=== PATIENT | male | born 1985 | race African-American/Black ===

== ENCOUNTER 2020-08-22 11:05 | Emergency (ER) | payer BC, OTHER ==
--- NOTE | 2020-08-22 14:34 | ER ---
Nurse's Notes [facility] Name: Baron Yanes Age: 34 yrs Sex: Male : 1985 Arrival Date: 08/22/2020 Time: 11:08 Bed Waiting Private MD: Diagnosis: Presentation: 08/22 11:38 Chief complaint: Patient states: chest palpitations that began 2-3 days ago. Pt reports aa5 he just started taking unknown antihypertensive on Tuesday. Coronavirus screen: At this time, the client does not indicate any symptoms associated with coronavirus-19. Ebola Screen: No symptoms or risks identified at this time. Initial Sepsis Screen: Does the patient meet any 2 criteria? No. Patient's initial sepsis screen is negative. Does the patient have a suspected source of infection? No. Patient's initial sepsis screen is negative. Risk Assessment: Do you want to hurt yourself or someone else? Patient reports no desire to harm self or others. Onset of symptoms was August 2020. 11:38 Method Of Arrival: Ambulatory aa5 11:38 Acuity: TANYA 3 aa5 Historical: - Allergies: 11:39 No Known Allergies; aa5 - PMHx: 11:39 Hypertension; aa5 - PSHx: 11:39 None; aa5 - Immunization history:: Adult Immunizations unknown. - Social history:: Smoking status: Patient reports the use of cigarette tobacco products, smokes one-half pack cigarettes per day. Vital Signs: 11:39 BP 162 / 105; Pulse 97; Resp 20 S; Temp 98.1(O); Pulse Ox 98% on R/A; Weight 149.69 kg aa5 (R); Height 5 ft. 11 in. (180.34 cm) (R); Pain 0/10; 11:39 Body Mass Index 46.03 (149.69 kg, 180.34 cm) aa5 ED Course: 11:08 Patient arrived in ED. ds1 11:38 Arm band placed on. EKG completed in triage. Results shown to MD. aa5 11:39 Triage completed. aa5 Administered Medications: No medications were administered Outcome: 14:32 Eloped from waiting room. ss 14:34 Patient left the ED. ss Signatures: Elisabeth Hurley ds1 Dorie Esquivel RN RN aa5 Smirch, Rena, RN RN ss
[2020-08-22 14:39] VITALS: BP 162/105; TEMP 98.1; O2SAT 98
--- NOTE | 2020-08-23 08:31 | EKG ---
Test Date: 2020-08-22 Test Time: 11:34:35 Financial Services Education Consultant: BARON MEASUREMENT RESULTS: Intervals: Rate: 87 IL: 174 QRSD: 92 QT: 352 QTc: 423 [place]: P: 69 IL: 174 QRS: 69 T: 35 INTERPRETIVE STATEMENTS: Normal sinus rhythm Nonspecific T wave abnormality Abnormal ECG No previous ECG available for comparison Electronically Signed On 08-23-20 08:29:11 TRACER LATHE SET UP OPERATOR by Luis Enrique Beyer
== END 2020-08-22 14:34 | disposition left against medical advice (07) ==
LOC: ER 11:05
DX: R00.2 Palpitations (principal); Z53.21 Procedure and treatment not carried out due to patient leaving prior to being seen by health care provider; I10 Essential (primary) hypertension; F17.210 Nicotine dependence, cigarettes, uncomplicated
CPT/HCPCS: 93005; 99281

== ENCOUNTER 2021-10-04 08:36 | Emergency (ER) | payer BC ==
[2021-10-04] MEDS ORDERED: HYDROCODONE/APAP 10/325 TAB ONE (08:52)
[2021-10-04] MEDS ORDERED: KETOROLAC 30 MG/ML INJ ONE (08:52)
--- NOTE | 2021-10-04 10:00 | RAD REPORT ---
EXAM DESCRIPTION: RAD - Knee Right 3 View - 10/04/2021 9:06 am CLINICAL HISTORY: PAIN COMPARISON: None available FINDINGS: No acute fracture changes are seen. No dislocation or periosteal reaction. No bone avulsio n present.A large joint effusion is present. No fat fluid level identifiable within the fluid. No elie nt space narrowing. No foreign body or other soft tissue abnormality. IMPRESSION: Large joint effusion with no acute bone finding. Clinical concerns for internal derangement or occult bony injury could be further assessed with MR im aging.
--- NOTE | 2021-10-04 10:08 | ER ---
Nurse's Notes [facility] Name: Baron Yanes Age: 35 yrs Sex: Male : 1985 Arrival Date: 10/04/2021 Time: 08:36 Bed 14 Private MD: Diagnosis: Sprain of other specified parts of right knee Presentation: 10/04 08:38 Chief complaint: Patient states: Right knee pain and swelling that started yesterday. ww He was outside doing yard work and heard a pop and this morning he is unable to bear any weight on the right leg. Coronavirus screen: Vaccine status: Patient reports receiving the 2nd dose of the covid vaccine. Client denies travel out of the [place] in the last 14 days. Ebola Screen: Patient denies travel to an Ebola-affected area in the 21 days before illness onset. Initial Sepsis Screen: Does the patient meet any 2 criteria? No. Patient's initial sepsis screen is negative. Does the patient have a suspected source of infection? No. Patient's initial sepsis screen is negative. Risk Assessment: Do you want to hurt yourself or someone else? Patient reports no desire to harm self or others. Onset of symptoms was October 03, 2021. 08:38 Method Of Arrival: EMS: [facility] 08:38 Acuity: TANYA 4 ww Triage Assessment: 08:39 General: Appears in no apparent distress. uncomfortable, Behavior is cooperative. Pain: ww Complains of pain in lateral aspect of right knee, medial aspect of right knee and right knee. Neuro: Level of Consciousness is awake, alert, obeys commands, Oriented to person, place, time, situation. Respiratory: Airway is patent Respiratory effort is even, unlabored, Respiratory pattern is regular, symmetrical. Historical: - Allergies: 08:39 No Known Allergies; ww - Home Meds: 08:39 Bystolic 10 mg oral tab 1 tab once daily [Active]; ww - PMHx: 08:39 Hypertension; ww - Immunization history:: Adult Immunizations up to date. - Social history:: Smoking status: Patient reports the use of cigarette tobacco products, smokes one-half pack cigarettes per day. Screenin:40 Abuse screen: Denies threats or abuse. Denies injuries from another. Nutritional ww screening: No deficits noted. Tuberculosis screening: No symptoms or risk factors identified. 08:54 Fall Risk None identified. ph Assessment: 08:53 General: Appears in no apparent distress. well groomed, Behavior is calm, cooperative, ph appropriate for age. Pain: Complains of pain in right knee. Neuro: Level of Consciousness is awake, alert, obeys commands, Oriented to person, place, time, situation. Cardiovascular: Capillary refill < 3 seconds in bilateral fingers Patient's skin is warm and dry. Respiratory: Airway is patent Respiratory effort is even, unlabored. Derm: Skin is intact, is healthy with good turgor, Skin is pink, warm \T\ dry. Musculoskeletal: Circulation, motion, and sensation intact. Range of motion: limited in right knee Swelling present in right knee. 10:07 Reassessment: Patient appears in no apparent distress at this time. Patient and/or ph family updated on plan of care and expected duration. Pain level reassessed. Patient is alert, oriented x 3, equal unlabored respirations, skin warm/dry/pink. Vital Signs: 08:38 Pulse 85; Resp 16; Temp 97.9; Pulse Ox 98% on R/A; Weight 149.69 kg; Height 5 ft. 11 ww in. (180.34 cm); Pain 9/10; 08:43 BP 154 / 102; ph 10:52 BP 178 / 101; Pulse 81; Resp 18; Temp 97.6; Pulse Ox 99% on R/A; ph 08:38 Body Mass Index 46.03 (149.69 kg, 180.34 cm) ww 10:52 pt did not take morning BP meds ph ED Course: 08:36 Patient arrived in ED. ds1 08:37 Kadeem Santa NP is PHCP. pm1 08:37 Meng Hurtado MD is Attending Physician. pm1 08:39 Triage completed. ww 08:39 Arm band placed on. ww 08:42 Anna Rosales, CLAY is Primary Nurse. ph 08:54 Patient has correct armband on for positive identification. Bed in low position. Call ph light in reach. Side rails up X 1. Pulse ox on. NIBP on. Door closed. Noise minimized. Warm blanket given. Ice pack to injury. 09:07 Knee Right 3 View XRAY In Process Unspecified. EDMS 10:52 No provider procedures requiring assistance completed. Patient did not have IV access ph during this emergency room visit. Crutch training done. Knee immobilizer applied on right knee. Administered Medications: 08:53 Drug: [place] (HYDROcodone-acetaminophen) 10 mg-325 mg 1 tabs Route: PO; ph 10:11 Follow up: Response: No adverse reaction ph 08:53 Drug: Ketorolac 60 mg Route: IM; Site: right deltoid; ph 10:11 Follow up: Response: No adverse reaction ph 10:51 Not Given (Other Intervention Used; out of stock in [facility]): Lidoderm Patch 5 % (700 ph mg/patch) 1 patches Topical once; leave on for 12 hours; cover most painful area; may cut into smaller pieces Outcome: 10:07 Discharge ordered by . pm1 10:53 Discharged to home via wheelchair, with crutches, with significant other. ph 10:53 Condition: good 10:53 Discharge instructions given to patient, significant other, Instructed on discharge instructions, follow up and referral plans. medication usage, Demonstrated understanding of instructions, follow-up care, medications, Prescriptions given X 2. 10:54 Patient left the ED. ph Signatures: Dispatcher [employer] [facility] Elisabeth Hurley ds1 Anna Rosales, CLAY RN Kadeem Lacy NP LETTERPRESS SETTER pm1 Namita Dave RN RN gilma
--- NOTE | 2021-10-04 10:09 | EDPHYS ---
Physician Documentation [facility] Name: Baron Yanes Age: 35 yrs Sex: Male : 1985 Arrival Date: 10/04/2021 Time: 08:36 Bed 14 Private MD: ED Physician Meng Hurtado HPI: 10/04 08:45 This 35 yrs old Black Male presents to ER via EMS with complaints of Knee Pain. pm1 08:45 The patient presents with pain, that is acute. The complaints affect the right knee. 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 Patient got down on his knees or the 10th window that he was painting and then when he got up he felt a pop to his right knee. He was able to ambulate and move without much difficulty and until last night he started having discomfort right knee, then woke up this morning with increased pain and swelling. Onset: The symptoms/episode began/occurred yesterday. Modifying factors: The symptoms are alleviated by remaining still, the symptoms are aggravated by movement, weight bearing, bending knee. Associated signs and symptoms: Pertinent positives: swelling, Pertinent negatives numbness, tingling. Treatment prior to arrival includes: no previous treatment. Severity of symptoms: in the emergency department the symptoms are actually worse. The patient has not experienced similar symptoms in the past. The patient has not recently seen a physician. Historical: - Allergies: 08:39 No Known Allergies; ww - Home Meds: 08:39 Bystolic 10 mg oral tab 1 tab once daily [Active]; ww - PMHx: 08:39 Hypertension; ww - Immunization history:: Adult Immunizations up to date. - Social history:: Smoking status: Patient reports the use of cigarette tobacco products, smokes one-half pack cigarettes per day. ROS: 08:45 Constitutional: Negative for fever, chills, and weight loss, Cardiovascular: Negative pm1 for chest pain, palpitations, and edema, Respiratory: Negative for shortness of breath, cough, wheezing, and pleuritic chest pain. 08:45 Skin: Negative for injury, rash, and discoloration, Neuro: Negative for headache, weakness, numbness, tingling, and seizure. 08:45 MS/extremity: Positive for swelling, tenderness, of the right knee, Negative for decreased range of motion, deformity. 08:45 All other systems are negative. Exam: 08:45 Constitutional: This is a well developed, well nourished patient who is awake, alert, pm1 and in no acute distress. Head/Face: Normocephalic, atraumatic. 08:45 Skin: Warm, dry with normal turgor. Normal color with no rashes, no lesions, and no evidence of cellulitis. 08:45 Cardiovascular: Exam negative for acute changes, Rate: normal, Rhythm: regular, Pulses: no pulse deficits are appreciated. 08:45 Respiratory: Exam negative for acute changes, respiratory distress, shortness of breath. 08:45 Musculoskeletal/extremity: Extremities: grossly normal except: noted in the right knee: swelling, tenderness, Pain present with Valgus stress test and rotation medially and flexion. Negative drawer, varus, and rotation laterally, There is no evidence of deformity, Circulation is intact in all extremities. the right leg Sensation intact. 08:45 Neuro: Exam negative for acute changes, Orientation: is normal, Mentation: is normal, Motor: is normal, moves all fours. Vital Signs: 08:38 Pulse 85; Resp 16; Temp 97.9; Pulse Ox 98% on R/A; Weight 149.69 kg; Height 5 ft. 11 ww in. (180.34 cm); Pain 9/10; 08:43 BP 154 / 102; ph 10:52 BP 178 / 101; Pulse 81; Resp 18; Temp 97.6; Pulse Ox 99% on R/A; ph 08:38 Body Mass Index 46.03 (149.69 kg, 180.34 cm) ww 10:52 pt did not take morning BP meds ph MDM: 08:37 Patient medically screened. pm1 10:06 Data reviewed: vital signs. Data interpreted: Pulse oximetry: on room air is 98 %. pm1 Interpretation: normal. Counseling: I had a detailed discussion with the patient and/or guardian regarding: the historical points, exam findings, and any diagnostic results supporting the discharge/admit diagnosis, radiology results, the need for outpatient follow up, a orthopedic surgeon, to return to the emergency department if symptoms worsen or persist or if there are any questions or concerns that arise at home, Need for MRI for further evaluation. Patient given copy of x-ray report. 10/04 08:45 Order name: Knee Right 3 View XRAY; Complete Time: 10:06 pm1 10/04 08:45 Order name: Knee Immobilizer; Complete Time: 10:52 pm1 10/04 08:45 Order name: Crutches; Complete Time: 10:52 pm1 Administered Medications: 08:53 Drug: [place] (HYDROcodone-acetaminophen) 10 mg-325 mg 1 tabs Route: PO; ph 10:11 Follow up: Response: No adverse reaction ph 08:53 Drug: Ketorolac 60 mg Route: IM; Site: right deltoid; ph 10:11 Follow up: Response: No adverse reaction ph 10:51 Not Given (Other Intervention Used; out of stock in [facility]): Lidoderm Patch 5 % (700 ph mg/patch) 1 patches Topical once; leave on for 12 hours; cover most painful area; may cut into smaller pieces Disposition Summary: 10/04/21 10:07 Discharge Ordered Location: Home pm1 Problem: new pm1 Symptoms: have improved pm1 Condition: Stable pm1 Diagnosis - Sprain of other specified parts of right knee pm1 Followup: pm1 - With: Emergency Department - When: As needed - Reason: Worsening of condition Followup: pm1 - With: Private Physician - When: 2 - 3 days - Reason: Recheck today's complaints, Continuance of care, Re-evaluation by your physician Discharge Instructions: - Discharge Summary Sheet pm1 - Cast or Splint Care, Adult pm1 - Crutch Use, Adult pm1 - Acute Knee Pain, Adult pm1 Forms: - Medication Reconciliation Form pm1 - Thank You Letter pm1 - Antibiotic Education pm1 - Prescription Opioid Use pm1 - Work release form Prescriptions: - Tylenol-Codeine #3 300 mg-30 mg Oral - take 2 tablet by ORAL route every 6 hours As needed; 20 tablet; Refills: 0, pm1 Product Selection Permitted - Diclofenac Sodium 75 mg Oral tablet,delayed release (DR/EC) - take 1 tablet by ORAL route 2 times per day As needed; 30 tablet; Refills: 0, pm1 Product Selection Permitted Signatures: Dispatcher [employer] Anna Avilez RN RN ph Marinas, Patrick, REY NUTRITION SERVICES ASSISTANT pm1 Namita Dave RN RN
[2021-10-04 11:02] VITALS: BP 178/101; TEMP 97.6; O2SAT 99
== END 2021-10-04 10:54 | disposition home or self-care (01) ==
LOC: ER 08:36
DX: S83.8X1A Sprain of other specified parts of right knee, initial encounter (principal); I10 Essential (primary) hypertension; F17.210 Nicotine dependence, cigarettes, uncomplicated
CPT/HCPCS: 96372; 99284

== ENCOUNTER 2024-03-19 14:14 | Observation (INO) | payer BC ==
[2024-03-19] MEDS ORDERED: NA CHLORIDE 0.9% 1,000 ML ONE (14:38)
[2024-03-19 14:53] LABS: Absolute Basophils 0.1 K/uL (0-0.5); Absolute Eosinophils 0.3 K/uL (0-0.5); Absolute Lymphocytes (CBC) 1.6 K/uL (0.7-4.9); Absolute Monocytes 0.9 K/uL (0.1-1.3); Basophils % 0.6 % (0-1.3); Eosinophils % 2.3 % (0-4.4); Hematocrit 44.4 % (39.6-49.0); Hemoglobin 14.5 g/dL (13.6-17.9); Lymphocytes % 13.4 % (15.3-44.8); MCH 29.6 pg (27.0-35.0); MCHC 32.7 g/dL (32.0-36.0); MCV 90.3 fL (80-100); MPV 11.4 fL (7.6-11.3); Monocytes % 7.7 % (3.3-12.3); Platelets 186 thou/uL (152-406); RBC Red Blood Cell Count 4.92 M/uL (4.33-5.43); Red Cell Distribution Width 14.8 % (12.1-15.2)
[2024-03-19 14:57] LABS: PT Prothrombin Time 11.5 SECONDS (9.4-12.5); Protime INR 1.03
[2024-03-19 14:59] LABS: Specific Gravity > 1.030 (1.005-1.030); Sqamous Epithelial None Seen /HPF (None Seen); Urine Bacteria <20 /HPF (<20); Urine Bilirubin NEGATIVE (Negative); Urine Blood Negative (Negative); Urine Clarity Clear (Clear); Urine Color Light-Yellow (Yellow); Urine Culture Reflex Order NOT NEEDED; Urine Glucose 4+ (Over) (Negative); Urine Ketones 1+ (Negative); Urine Microscopic Reflex YN ORDER UMIC; Urine Nitrite NEGATIVE (Negative); Urine Protein 1+ (Negative); Urine RBC <5 /HPF (None Seen); Urine Urobilinogen Normal (Normal); Urine WBC <5 /HPF (<5)
--- NOTE | 2024-03-19 15:05 | RAD REPORT ---
EXAMINATION: CT HEAD WITHOUT CONTRAST CLINICAL INDICATION: Male, 38 years old.HEADACHE TECHNIQUE: Axial CT images from the skull base to the vertex without intravenous contrast. Coronal an d sagittal reformatted images were created from the data set. One or more of the following dose reduction techniques were used: Automated exposure control, adjustment of the mA and/or kV according to patient size, and/or iterative reconstruction. Unless otherwise specified, incidental findings do not require dedicated imaging follow-up. [id number]. COMPARISON: No prior exam. FINDINGS: INTRACRANIAL: No acute intracranial hemorrhage. No hydrocephalus. No mass effect or midline shift. Pa tchy areas of irregular white matter hypoattenuation within the frontal, parietal, and occipital lobes bilaterally. This is not well assessed. VASCULATURE: No visualized abnormalities in the arteries or dural venous sinuses. SCALP/SKULL: No significant soft tissue or osseous abnormalities. SINUSES: Ethmoid air cell thickening and bilateral maxillary sinus thickening. IMPRESSION: Patchy white matter hypoattenuation bilaterally which is not well assessed. Consider MRI for further evaluation. No acute intracranial hemorrhage.
--- NOTE | 2024-03-19 15:15 | RAD REPORT ---
EXAMINATION: ONE VIEW CHEST XR CLINICAL INDICATION: Male, 38 years old.COUGH TECHNIQUE: 1 View, AP supine, X-ray of the chest was performed. [id number]. COMPARISON: No prior exam. FINDINGS: Lungs and pleura: Clear lungs. No effusion. Heart and mediastinum: Normal heart size. Unremarkable mediastinal contours. Osseous structures: No acute abnormality. Tubes/lines: None Other: None. IMPRESSION: No acute intrathoracic abnormality.
[2024-03-19 15:36] LABS: ALT/SGPT 53 U/L (16-61); Albumin 3.6 g/dL (3.4-5.0); Albumin/Globulin Ratio 0.8 (1.1-1.8); Alkaline Phosphatase 75 U/L (45-117); BUN Blood Urea Nitrogen 22 mg/dL (7-18); Bicarbonate 24 mEq/L (21-32); Bilirubin Total 0.5 mg/dL (0.2-1.0); Globulin 4.4 g/dL (2.3-3.5); Glomerular Filtration Rate 55 ml/min (=/>90); NT PRO-BNP 17 pg/mL (<125); Sodium Level 130 mEq/L (136-145); Troponin High Sensitivity 63.5 pg/mL (<58.9)
[2024-03-19 15:38] LABS: AST/SGOT 35 U/L (15-37); Bilirubin Direct < 0.2 mg/dL (0-0.2); Bilirubin Indirect, Calculated 0.3 mg/dL (0.2-0.8); Magnesium 1.7 mg/dL (1.6-2.4)
[2024-03-19 16:10] LABS: Glucose Level 421 mg/dL (74-106)
--- NOTE | 2024-03-19 16:19 | EDPHYS ---
Physician Documentation [facility] Name: Baron Yanes Age: 38 yrs Sex: Male : 1985 Arrival Date: 03/19/2024 Time: 14:14 Bed 18 Private MD: ED Physician Mayur Carreon HPI: 03/19 16:14 This 38 yrs old Black Male presents to ER via EMS with complaints of Blood Pressure maxim Problem. 16:14 The patient presents with dizziness, generalized weakness. Onset: The symptoms/episode maxim began/occurred just prior to arrival. Context: occurred while the patient was working. Modifying factors: The symptoms are alleviated by nothing, the symptoms are aggravated by nothing. Associated signs and symptoms: The patient has no apparent associated signs or symptoms. Severity of symptoms: At their worst the symptoms were moderate in the emergency department the symptoms have improved moderately. Patient's baseline: Neuro:. Historical: - Allergies: 14:20 No Known Allergies; kc6 - Home Meds: 14:20 bisoprolol-hydrochlorothiazide oral [Active]; kc6 - PMHx: 14:20 Hypertension; kc6 - PSHx: 14:20 None; kc6 - Immunization history:: Adult Immunizations up to date. - Infectious Disease History:: Denies. - Social history:: Smoking status: Patient reports the use of cigarette tobacco products, smokes one-half pack cigarettes per day. - Family history:: not pertinent. ROS: 16:15 Constitutional: Negative for fever, chills, and weight loss, Eyes: Negative for injury, maxim pain, redness, and discharge, ENT: Negative for injury, pain, and discharge, Neck: Negative for injury, pain, and swelling, Cardiovascular: Negative for chest pain, palpitations, and edema, Respiratory: Negative for shortness of breath, cough, wheezing, and pleuritic chest pain, Abdomen/GI: Negative for abdominal pain, nausea, vomiting, diarrhea, and constipation, Back: Negative for injury and pain, : Negative for injury, bleeding, discharge, and swelling, MS/Extremity: Negative for injury and deformity, Skin: Negative for injury, rash, and discoloration, Psych: Negative for depression, anxiety, suicide ideation, homicidal ideation, and hallucinations, Allergy/Immunology: Negative for hives, rash, and allergies, Endocrine: Negative for neck swelling, polydipsia, polyuria, polyphagia, and marked weight changes, Hematologic/Lymphatic: Negative for swollen nodes, abnormal bleeding, and unusual bruising, 16:15 Neuro: Positive for dizziness, weakness, Exam: 16:15 Constitutional: This is a well developed, well nourished patient who is awake, alert, maxim and in no acute distress. Head/Face: Normocephalic, atraumatic. Eyes: Pupils equal round and reactive to light, extra-ocular motions intact. Lids and lashes normal. Conjunctiva and sclera are non-icteric and not injected. Cornea within normal limits. Periorbital areas with no swelling, redness, or edema. ENT: Nares patent. No nasal discharge, no septal abnormalities noted. Tympanic membranes are normal and external auditory canals are clear. Oropharynx with no redness, swelling, or masses, exudates, or evidence of obstruction, uvula midline. Mucous membranes moist. Neck: Trachea midline, no thyromegaly or masses palpated, and no cervical lymphadenopathy. Supple, full range of motion without nuchal rigidity, or vertebral point tenderness. No Meningismus. Chest/axilla: Normal chest wall appearance and motion. Nontender with no deformity. No lesions are appreciated. Cardiovascular: Regular rate and rhythm with a normal S1 and S2. No gallops, murmurs, or rubs. Normal PMI, no JVD. No pulse deficits. Respiratory: Lungs have equal breath sounds bilaterally, clear to auscultation and percussion. No rales, rhonchi or wheezes noted. No increased work of breathing, no retractions or nasal flaring. Abdomen/GI: Soft, non-tender, with normal bowel sounds. No distension or tympany. No guarding or rebound. No evidence of tenderness throughout. Back: No spinal tenderness. No costovertebral tenderness. Full range of motion. Male : Normal genitalia with no discharge or lesions. Skin: Warm, dry with normal turgor. Normal color with no rashes, no lesions, and no evidence of cellulitis. MS/ Extremity: Pulses equal, no cyanosis. Neurovascular intact. Full, normal range of motion. Neuro: Awake and alert, GCS 15, oriented to person, place, time, and situation. Cranial nerves II-XII grossly intact. Motor strength 5/5 in all extremities. Sensory grossly intact. Cerebellar exam normal. Normal gait. Psych: Awake, alert, with orientation to person, place and time. Behavior, mood, and affect are within normal limits. 16:15 ECG was reviewed by the Attending Physician. Vital Signs: 14:19 BP 143 / 97; Pulse 85; Resp 18 S; Temp 98.2(O); Pulse Ox 96% on R/A; Weight 154.5 kg kc6 (M); Height 5 ft. 11 in. (R); 16:09 BP 154 / 91; Pulse 79; Resp 18 S; Pulse Ox 100% on R/A; kc6 17:49 BP 138 / 87; Pulse 85; Resp 18 S; Pulse Ox 97% on R/A; kc6 14:19 Body Mass Index 47.51 (154.50 kg, 180.34 cm) kc6 MDM: 14:19 Patient medically screened. [facility] 16:16 Differential diagnosis: cardiac arrhythmia, CVA, generalized weakness, hypovolemia, maxim idiopathic dizziness, near-syncope, sepsis, vertigo. Data reviewed: vital signs, nurses notes, EMS record, lab test result(s), EKG, radiologic studies, CT scan, plain films. Consideration of Admission/Observation Escalation of care including admission/observation considered. I considered the following discharge prescriptions or medication management in the emergency department Medications were administered in the Emergency Department. See MAR. Independent interpretation of the following test(s) in the Emergency Department EKG: See my EKG interpretation above. Test considered but Not performed: Ultrasound no 2 d echo. Care significantly affected by the following chronic conditions: Hypertension, Obesity. 03/19 14:20 Order name: Basic Metabolic Panel; Complete Time: 16:12 [facility] 03/19 14:20 Order name: CBC with Diff; Complete Time: 16:12 [facility] 03/19 14:20 Order name: LFT's; Complete Time: 16:12 [facility] 03/19 14:20 Order name: Magnesium; Complete Time: 16:12 [facility] 03/19 14:20 Order name: NT PRO-BNP; Complete Time: 16:12 [facility] 03/19 14:20 Order name: PT-INR; Complete Time: 16:12 [facility] 03/19 14:20 Order name: Troponin HS; Complete Time: 16:12 [facility] 03/19 14:20 Order name: Urinalysis w/ reflexes; Complete Time: 16:12 [facility] 03/19 18:07 Order name: Glucose, Ancillary Testing [facility] 03/19 14:20 Order name: XRAY Chest (1 view); Complete Time: 16:12 [facility] 03/19 14:20 Order name: CT Head Brain wo Cont; Complete Time: 16:12 [facility] 03/19 16:25 Order name: CONS Physician Consult [facility] 03/19 14:20 Order name: Cardiac monitoring; Complete Time: 14:31 [facility] 03/19 14:20 Order name: EKG - Nurse/Tech; Complete Time: 14:40 [facility] 03/19 14:20 Order name: IV Saline Lock; Complete Time: 14:31 [facility] 03/19 14:20 Order name: Labs collected and sent; Complete Time: 14:40 [facility] 03/19 14:20 Order name: O2 Per Protocol; Complete Time: 14:31 [facility] 03/19 14:20 Order name: O2 Sat Monitoring; Complete Time: 14:31 [facility] 03/19 14:59 Order name: Labs - recollect needed: recollect green top; Complete Time: 15:14 bd EC:15 Rate is 81 beats/min. Rhythm is regular. QRS Meta is Normal. NJ interval is normal. QRS maxim interval is normal. QT interval is normal. No Q waves. T waves are Normal. No ST changes noted. Clinical impression: NSR w/ Non-specific ST/T Changes and No evidence of ischemia. Interpreted by me. Reviewed by me. Administered Medications: 14:40 Drug: NS 0.9% IV 1000 ml IV at 125 ml/hr continuous Route: IV; Rate: 125 ml/hr; Site: [facility] left hand; 18:32 Follow up: Response: No adverse reaction; IV Status: Completed infusion; IV Intake: kc6 1000ml 16:57 Drug: Aspirin PO Chewable Tablet 162 mg PO once Route: PO; [facility] 17:50 Follow up: Response: No adverse reaction [facility] 17:00 Drug: Insulin Regular Human IVP 10 units IVP once {Co-Signature: tl4 (Orestes Martinez RN).} Route: IVP; Site: left antecubital; 17:51 Follow up: Response: No adverse reaction; Blood sugar is lowered [facility] 17:01 Drug: Insulin Regular Human Sub-Q 6 units Sub-Q once {Co-Signature: tl4 (Logdahl, Orestes kc6 RN).} Route: Sub-Q; Site: right upper arm; 17:51 Follow up: Response: No adverse reaction; Blood sugar is lowered kc6 17:05 Drug: Insulin Glargine Sub-Q 30 units Sub-Q once {Co-Signature: db (Petty Corona6 RN).} Route: Sub-Q; Site: right upper arm; 17:51 Follow up: Response: No adverse reaction; Blood sugar is lowered kc6 Disposition Summary: 03/19/24 16:19 Hospitalization Ordered Notes: Hospitalization Status: Inpatient Admission maxim Provider: Tom Clement cha Location: Telemetry/MedSurg (Inpatient) maxim Condition: Stable maxim Problem: new maxim Symptoms: have improved maxim Bed/Room Type: Standard [facility] Room Assignment: 201(03/19/24 16:35) bd Diagnosis - Type 2 diabetes mellitus with hyperglycemia maxim - Abnormal levels of other serum enzymes - elevated trop maxim - Essential (primary) hypertension maxim Forms: - Medication Reconciliation Form maxim - SBAR form maxim - Leadership Thank You Letter maxim Signatures: Dispatcher [employer] EDMS Audrey Sarah Corey, MD MD cha Campbell, Kaitlyn, RN RN kc6 Orestes Martinez RN tl4 Petty Corona RN Corrections: (The following items were deleted from the chart) 14:21 14:21 BASIC METABOLIC PANEL+C.LAB.BRZ ordered. EDMS EDMS 14:21 14:21 CBC+H.LAB.BRZ ordered. EDMS EDMS 14:21 14:21 HEPATIC FUNCTION+C.LAB.BRZ ordered. EDMS EDMS 14:21 14:21 MAGNESIUM+C.LAB.BRZ ordered. EDMS EDMS 14:21 14:21 PROBNP+C.LAB.BRZ ordered. EDMS EDMS 14:21 14:21 PROTIME (+INR)+COAG.LAB.BRZ ordered. EDMS EDMS 14:21 14:21 Troponin High Sensitivity+C.LAB.BRZ ordered. EDMS EDMS 14:21 14:21 Urinalysis+U.LAB.BRZ ordered. EDMS EDMS 14:21 14:21 Chest Single View+RAD.RAD.BRZ ordered. EDMS EDMS 14:21 14:21 Head Brain Wo Cont+CT.RAD.BRZ ordered. EDMS EDMS 16:35 16:19 maxim bd
--- NOTE | 2024-03-19 16:19 | ER ---
Nurse's Notes [facility] Name: Baron Yanes Age: 38 yrs Sex: Male : 1985 Arrival Date: 03/19/2024 Time: 14:14 Bed 18 Private MD: Diagnosis: Type 2 diabetes mellitus with hyperglycemia;Abnormal levels of other serum enzymes-elevated trop;Essential (primary) hypertension Presentation: 03/19 14:19 Chief complaint: EMS states: they were toned out for dizziness and blurred vision while kc6 at work. pt reports adjusting his BP meds recently. Coronavirus screen: At this time, the client does not indicate any symptoms associated with coronavirus-19. Ebola Screen: No symptoms or risks identified at this time. Initial Sepsis Screen: Does the patient meet any 2 criteria? No. Patient's initial sepsis screen is negative. Does the patient have a suspected source of infection? No. Patient's initial sepsis screen is negative. Risk Assessment: Do you want to hurt yourself or someone else? Patient reports no desire to harm self or others. Onset of symptoms was March 19, 2024. 14:19 Method Of Arrival: EMS: [facility] kc6 14:19 Acuity: TANYA 3 kc6 Historical: - Allergies: 14:20 No Known Allergies; kc6 - Home Meds: 14:20 bisoprolol-hydrochlorothiazide oral [Active]; kc6 - PMHx: 14:20 Hypertension; kc6 - PSHx: 14:20 None; kc6 - Immunization history:: Adult Immunizations up to date. - Infectious Disease History:: Denies. - Social history:: Smoking status: Patient reports the use of cigarette tobacco products, smokes one-half pack cigarettes per day. - Family history:: not pertinent. Screenin:30 [facility] ED Fall Risk Assessment (Adult) History of falling in the last 3 months, kc6 including since admission No falls in past 3 months (0 pts) Confusion or Disorientation No (0 pts) Intoxicated or Sedated No (0 pts) Impaired Gait No (0 pts) Mobility Assist Device Used No (0 pt) Altered Elimination No (0 pt) Score/Fall Risk Level 0 - 2 = Low Risk Oriented to surroundings. Abuse screen: Denies threats or abuse. Denies injuries from another. Nutritional screening: No deficits noted. Tuberculosis screening: No symptoms or risk factors identified. Assessment: 14:40 General: Appears in no apparent distress. comfortable, obese, well groomed, well kc6 developed, Behavior is calm, cooperative, appropriate for age. Pain: Denies pain. Neuro: Level of Consciousness is awake, alert, obeys commands, Oriented to person, place, time, situation, Appropriate for age Reports blurred vision dizziness. Cardiovascular: Capillary refill < 3 seconds Rhythm is sinus rhythm. Respiratory: Airway is patent Trachea midline Respiratory effort is even, unlabored, Respiratory pattern is regular, symmetrical. GI: No signs and/or symptoms were reported involving the gastrointestinal system. : No signs and/or symptoms were reported regarding the genitourinary system. EENT: No signs and/or symptoms were reported regarding the EENT system. Derm: No signs and/or symptoms reported regarding the dermatologic system. Skin is intact, is healthy with good turgor, Skin is pink, warm \T\ dry. Musculoskeletal: No signs and/or symptoms reported regarding the musculoskeletal system. Circulation, motion, and sensation intact. Capillary refill < 3 seconds, Range of motion: intact in all extremities. 16:09 Reassessment: Patient appears in no apparent distress at this time. No changes from kc6 previously documented assessment. Patient and/or family updated on plan of care and expected duration. Pain level reassessed. Patient is alert, oriented x 3, equal unlabored respirations, skin warm/dry/pink. 17:49 Reassessment: Patient appears in no apparent distress at this time. No changes from kc6 previously documented assessment. Patient and/or family updated on plan of care and expected duration. Pain level reassessed. Patient is alert, oriented x 3, equal unlabored respirations, skin warm/dry/pink. Vital Signs: 14:19 BP 143 / 97; Pulse 85; Resp 18 S; Temp 98.2(O); Pulse Ox 96% on R/A; Weight 154.5 kg kc6 (M); Height 5 ft. 11 in. (R); 16:09 BP 154 / 91; Pulse 79; Resp 18 S; Pulse Ox 100% on R/A; kc6 17:49 BP 138 / 87; Pulse 85; Resp 18 S; Pulse Ox 97% on R/A; kc6 14:19 Body Mass Index 47.51 (154.50 kg, 180.34 cm) kc6 ED Course: 14:18 Patient arrived in ED. kc6 14:19 Mayur Carreon MD is Attending Physician. [facility] 14:20 Triage completed. kc6 14:20 Arm band placed on. kc6 14:30 Meena Venegas, CLAY is Primary Nurse. kc6 14:30 Patient has correct armband on for positive identification. Bed in low position. Call [facility] light in reach. Side rails up X 1. Adult w/ patient. Pulse ox on. NIBP on. Door closed. Noise minimized. Lights dimmed. Pillow given. 14:30 Maintain EMS IV. Dressing intact. Good blood return noted. Site clean \T\ dry. Gauge \T\ claudia 6 site: 20G LHAND. Flushed with 10 mL NS. Patient maintains SpO2 saturation greater than 95% on room air. 14:56 CT Head Brain wo Cont In Process Unspecified. EDMS 15:12 XRAY Chest (1 view) In Process Unspecified. EDMS 16:17 Tom Clement MD is Hospitalizing Provider. [facility] 16:46 1646 CM met with and his Petty at the bedside in the ED exam room. ane Patient identified by name . Demographic sheet confirmed. Patient states him and his live in a single story home. He states that prior to admission, he performs ADLs independently. DME in the home includes a glucometer. PCP is Dr. Clement. No other DME, no HH, no home oxygen or other medical services at this time. No MPOA in place. His preferred plan is to return home upon discharge and Petty states that she will transport him home. CM team will continue to follow and coordinate care during this hospital stay. 18:32 No provider procedures requiring assistance completed. Patient admitted, IV remains in kc6 place. Administered Medications: 14:40 Drug: NS 0.9% IV 1000 ml IV at 125 ml/hr continuous Route: IV; Rate: 125 ml/hr; Site: [facility] left hand; 18:32 Follow up: Response: No adverse reaction; IV Status: Completed infusion; IV Intake: kc6 1000ml 16:57 Drug: Aspirin PO Chewable Tablet 162 mg PO once Route: PO; kc 17:50 Follow up: Response: No adverse reaction kc6 17:00 Drug: Insulin Regular Human IVP 10 units IVP once {Co-Signature: tl4 (Orestes Martinez RN).} Route: IVP; Site: left antecubital; 17:51 Follow up: Response: No adverse reaction; Blood sugar is lowered kc6 17:01 Drug: Insulin Regular Human Sub-Q 6 units Sub-Q once {Co-Signature: tl4 (Orestes Martinez RN).} Route: Sub-Q; Site: right upper arm; 17:51 Follow up: Response: No adverse reaction; Blood sugar is lowered kc6 17:05 Drug: Insulin Glargine Sub-Q 30 units Sub-Q once {Co-Signature: db (Petty Corona6 RN).} Route: Sub-Q; Site: right upper arm; 17:51 Follow up: Response: No adverse reaction; Blood sugar is lowered kc6 Medication: 18:33 VIS not applicable for this client. kc6 Intake: 18:32 IV: 1000ml; Total: 1000ml. kc6 Outcome: 16:19 Decision to Hospitalize by Provider. maxim 18:32 Admitted to Med/surg accompanied by tech, via wheelchair, with chart, kc6 18:32 Condition: good 18:32 Instructed on the need for admit, 18:33 Patient left the ED. kc6 Signatures: Dispatcher [employer] Mayur Baig MD MD cha Campbell, Kaitlyn RN RN kc6 Iza Patel RN RN ane Logdahl, Toni RN tl4 Petty Corona RN db Corrections: (The following items were deleted from the chart) 18:18 17:49 Pulse 85bpm; Resp 18bpm; Spontaneous; Pulse Ox 97% RA; kc6 kc6
[2024-03-19] MEDS ORDERED: ASPIRIN 81 MG CHEWABLE TABLET ONE (16:45)
[2024-03-19] MEDS ORDERED: INSULIN REGULAR (HUMAN) 100 UNIT/ML ONE (16:45)
[2024-03-19] MEDS ORDERED: INSULIN GLARGINE 100 UNIT/ML SQ ONE (17:02)
[2024-03-19] MEDS ORDERED: GLUCAGON 1 MG/VIAL IM PRN (19:11)
[2024-03-19] MEDS ORDERED: ONDANSETRON 4 MG/2 ML VIAL IV PRN (19:11)
[2024-03-19] MEDS: NA CHLORIDE 0.9% 1,000 ML IV SCH (19:11)
[2024-03-19] MEDS ORDERED: ACETAMINOPHEN 325 MG TABLET PO PRN (19:11)
[2024-03-19] MEDS ORDERED: D10W 125 ML IV PRN (19:11)
[2024-03-19 19:26] VITALS: BMI 48.8
[2024-03-19] MEDS: FAMOTIDINE 20 MG/2 ML VIAL IV SCH (20:51)
[2024-03-20 04:44] LABS: Absolute Eosinophils 0.3 K/uL (0-0.5); Absolute Lymphocytes (CBC) 2.1 K/uL (0.7-4.9); Absolute Monocytes 0.9 K/uL (0.1-1.3); Absolute Neutrophil 5.6 K/uL (1.8-8.0); Basophils % 0.5 % (0-1.3); Eosinophils % 3.3 % (0-4.4); Hematocrit 43.2 % (39.6-49.0); Hemoglobin 13.9 g/dL (13.6-17.9); Lymphocytes % 23.5 % (15.3-44.8); MCHC 32.3 g/dL (32.0-36.0); MCV 89.9 fL (80-100); Monocytes % 9.9 % (3.3-12.3); Neutrophils % 62.8 % (41.7-73.7); Platelets 172 thou/uL (152-406); Red Cell Distribution Width 14.6 % (12.1-15.2)
[2024-03-20 08:29] VITALS: BP 152/92; TEMP 97.6
[2024-03-20] MEDS: NALTREXONE 50 MG PO SCH (09:00)
[2024-03-20] MEDS ORDERED: AMLODIPINE 10 MG TAB PO SCH (09:00)
[2024-03-20] MEDS: BISOPROLOL FUMARATE 10 MG PO SCH (09:00)
[2024-03-20] MEDS: NEBIVOLOL HCL 5 MG TAB PO SCH (09:19)
[2024-03-20] MEDS: AMLODIPINE 10 MG TAB PO SCH (09:20)
[2024-03-20] MEDS: ASPIRIN EC 81 MG TAB PO SCH (09:20)
[2024-03-20] MEDS: INSULIN GLARGINE 100 UNIT/ML SQ SCH (09:23)
[2024-03-20 10:25] VITALS: O2SAT 96
--- NOTE | 2024-03-20 11:37 | P.CNS ---
Date of Consult: 03/20/24 Chief Complaint: weakness, troponin leak History of Present Illness: Patient with PMH of HTN, recently diagnosed DM presented with dizziness, weakness, headache, denies chest pain, no palpitations, no MALDONADO. Allergies No Known Allergies Allergy (Verified 03/19/24 19:03) Home medications list reviewed: Yes Home Medications: Amlodipine Besylate 10 mg PO DAILY 03/19/24 Eplerenone 50 mg PO DAILY 03/19/24 Naltrexone 50 Mg 0.5 tab PO BID 03/19/24 bisoproloL fumarate [Bisoprolol Fumarate] 10 mg PO DAILY 03/19/24 - Past Medical/Surgical History Diabetic: Yes -: HTN - Social History Smoking Status: Current every day smoker Alcohol use: No CD- Drugs: No Caffeine use: No Place of Residence: Home Review of Systems 10-point ROS is otherwise unremarkable Physical Examination Temp Pulse Resp BP Pulse Ox 97.6 F 64 16 152/92 H 96 03/20/24 08:00 03/20/24 09:20 03/20/24 08:00 03/20/24 09:20 03/20/24 08:00 General: Alert, In no apparent distress HEENT: Atraumatic, PERRLA, Mucous membr. moist/pink, EOMI, Sclerae nonicteric Neck: Supple, 2+ carotid pulse no bruit, No LAD, Without JVD or thyroid abnormality Respiratory: Clear to auscultation bilaterally, Normal air movement Cardiovascular: Regular rate/rhythm, Normal S1 S2 Gastrointestinal: Normal bowel sounds, No tenderness Musculoskeletal: No tenderness Integumentary: No rashes Neurological: Normal gait, Normal speech, Normal tone, Normal affect Lymphatics: No axilla or inguinal lymphadenopathy Laboratory Data (last 24 hrs) 03/19/24 03/19/24 03/19/24 15:07 14:36 14:36 WBC 11.80 H Hgb 14.5 Hct 44.4 Plt Count 186 PT 11.5 INR 1.03 Sodium 130 L Potassium 4.0 BUN 22 H Creatinine 1.63 H Glucose 421 H* Magnesium 1.7 Total Bilirubin 0.5 AST 35 ALT 53 Alkaline Phosphatase 75 - Problems (1) HTN (hypertension) Current Visit: Yes Status: Acute Plan: continue norvasc 10 mg daily continue bisoprolol 10 mg daily may add eplernone home dose back. (2) Type 2 VA (myocardial infarction) Current Visit: Yes Status: Acute Plan: mild leak of troponin with no delta, no chest pain, type 2 VA from high BP no further inpatient work up needed. can follow up as outpatient.
--- NOTE | 2024-03-20 12:25 | EKG ---
Test Date: 2024-03-20 Test Time: 09:13:54 Architectural Draftsperson: MARIO MEASUREMENT RESULTS: Intervals: Rate: 64 GA: 178 QRSD: 106 QT: 380 QTc: 392 [place]: P: 60 GA: 178 QRS: 60 T: -5 INTERPRETIVE STATEMENTS: Normal sinus rhythm T wave abnormality, consider inferior ischemia Abnormal ECG Compared to ECG 03/19/2024 14:36:14 T-wave abnormality now present Possible ischemia now present Electronically Signed On 03-20-24 12:24:20 CDT by Jimy Swartz
--- NOTE | 2024-03-20 12:28 | EKG ---
Test Date: 2024-03-19 Test Time: 14:36:14 Stone Gluer: MEG MEASUREMENT RESULTS: Intervals: Rate: 81 VA: 182 QRSD: 94 QT: 334 QTc: 387 [place]: P: 74 VA: 182 QRS: 63 T: 41 INTERPRETIVE STATEMENTS: Normal sinus rhythm Normal ECG Compared to ECG 08/22/2020 11:34:35 T-wave abnormality no longer present Electronically Signed On 03-20-24 12:26:05 CDT by Jimy Swartz
[2024-03-20] MEDS ORDERED: FLU (Fluarix Triv) TS24-25(6MOS UP)/PF 45 MCG/0.5 ML Syringe IM ONE (13:00)
--- NOTE | 2024-03-20 13:09 | P.SSS ---
Patient History Date of Service: 03/20/24 Reason for admission: BLURRED VISION, HIGH GLUCOSE History of Present Illness: STEPHANIE IS MORBIDLY OBESE GM WHO I JUST SAW IN OFFICE FOR HTN, COMES WITH BLURRED VISION. 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 HIS A1C WAS 6.5 TWO YEARS AGO. HE HAS GAINED WEIGHT NAD HE EATS WHATEVER HE WANTS. HIS GLUCOSE WAS 421 HERE AND IS DOWN TO 200S NOW. HE IS NOT BLURRED ANY LONGER. Allergies No Known Allergies Allergy (Verified 03/19/24 19:03) Home medications list reviewed: Yes Home Medications: Amlodipine Besylate 10 mg PO DAILY 03/19/24 Naltrexone 50 Mg 0.5 tab PO BID 03/19/24 bisoproloL fumarate [Bisoprolol Fumarate] 10 mg PO DAILY 03/19/24 - Past Medical/Surgical History Has patient received pneumonia vaccine in the past: No Diabetic: Yes -: HTN - Social History Smoking Status: Current every day smoker Alcohol use: No CD- Drugs: No Caffeine use: No Place of Residence: Home Review of Systems 10-point ROS is otherwise unremarkable General: As per HPI Physical Examination - Vital Signs Temperature: 97.6 F Blood Pressure: 152/92 Pulse: 64 Respirations: 16 Pulse Ox (%): 96 - Physical Exam General: Alert, Mild distress, Obese HEENT: Atraumatic, PERRLA, Mucous membr. moist/pink, EOMI, Sclerae nonicteric Neck: Supple, 2+ carotid pulse no bruit, No LAD, Without JVD or thyroid abnormality Respiratory: Clear to auscultation bilaterally, Normal air movement Cardiovascular: Regular rate/rhythm, Normal S1 S2 Gastrointestinal: Normal bowel sounds, No tenderness Musculoskeletal: No tenderness Integumentary: No rashes Neurological: Normal gait, Normal speech, Normal strength at 5/5 x4 extr, Normal tone, Normal affect Lymphatics: No axilla or inguinal lymphadenopathy - Studies Laboratory Data (last 24 hrs) 03/19/24 03/19/24 03/19/24 15:07 14:36 14:36 WBC 11.80 H Hgb 14.5 Hct 44.4 Plt Count 186 PT 11.5 INR 1.03 Sodium 130 L Potassium 4.0 BUN 22 H Creatinine 1.63 H Glucose 421 H* Magnesium 1.7 Total Bilirubin 0.5 AST 35 ALT 53 Alkaline Phosphatase 75 - Diagnosis (Problem(s)) (1) Uncontrolled diabetes mellitus with hyperglycemia Current Visit: Yes Status: Acute Plan: I CALLED IN TRESIBA 30 U SC DAILY HE HAS TO LOSE WEIGHT TO GET OFF INSULIN. HE WILL NEED ORAL MEDS AND THAT I WILL WORK ON FROM OFFICE. HE IS STABLE FOR HOME. HIS AND HIM BOTH HAVE BMI MORE THAN 48. 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 THIS WILL HELP HIM GET OFF INSULIN. (2) HTN (hypertension) Current Visit: Yes Status: Chronic Plan: CONT MEDS. WILL STOP EPLERNONE HE IS DEHYDRATED FOR NOW. THIS CAN BE FROM HYPERGLYCEMIA ALSO. - Disposition Disposition: ROUTINE DISCHARGE
== END 2024-03-20 14:15 | disposition home or self-care (01) ==
LOC: ER 14:14 → ERHOLD 16:21 → 2ND 18:28
PROVIDERS: ADMIT Internal Medicine; ATTEND Internal Medicine
DX: E11.65 Type 2 diabetes mellitus with hyperglycemia (principal); I21.A1 Myocardial infarction type 2; I10 Essential (primary) hypertension; R53.1 Weakness; F17.210 Nicotine dependence, cigarettes, uncomplicated
CPT/HCPCS: 96361; 93005 ×2; 85025 ×2; 81001; 80048 ×2; 36415; 83735; 85610; 82947 ×4; 80076; 84484 ×2; 83880; 70450; 71045; 96372; 96374; 99285; J7030 ×3; G0378 ×4

== ENCOUNTER 2024-09-02 22:39 | Emergency (ER) | payer BC ==
[2024-09-02] MEDS ORDERED: KETOROLAC 30 MG/ML INJ ONE (23:15)
[2024-09-02] MEDS ORDERED: ONDANSETRON 4 MG/2 ML VIAL ONE (23:15)
[2024-09-02] MEDS ORDERED: MORPHINE 4 MG/ML SYR ONE (23:16)
[2024-09-02] MEDS ORDERED: NA CHLORIDE 0.9% 1,000 ML ONE (23:16)
[2024-09-02] MEDS ORDERED: FAMOTIDINE 20 MG/2 ML VIAL IV ONE (23:16)
[2024-09-02 23:17] LABS: Absolute Basophils 0.1 K/uL (0-0.5); Absolute Eosinophils 0.2 K/uL (0-0.5); Absolute Lymphocytes (CBC) 2.9 K/uL (0.7-4.9); Absolute Neutrophil 8.5 K/uL (1.8-8.0); Basophils % 0.7 % (0-1.3); Eosinophils % 1.5 % (0-4.4); Hematocrit 27.1 % (39.6-49.0); Hemoglobin 8.7 g/dL (13.6-17.9); MCH 28.6 pg (27.0-35.0); MCHC 32.1 g/dL (32.0-36.0); MCV 88.9 fL (80-100); MPV 9.8 fL (7.6-11.3); Monocytes % 8.1 % (3.3-12.3); Neutrophils % 66.7 % (41.7-73.7); Nucleated Red Blood Cells % 0.2 % (0-0); PT Prothrombin Time 13.1 SECONDS (10-13.0); Platelets 218 thou/uL (152-406); Protime INR 1.16; RBC Red Blood Cell Count 3.05 M/uL (4.33-5.43); Red Cell Distribution Width 15.1 % (12.1-15.2)
[2024-09-02 23:28] LABS: Albumin/Globulin Ratio 0.9 (1.1-1.8); Anion Gap 9.2 mEq/L (5.0-15.0); Bilirubin Total 0.2 mg/dL (0.2-1.0); Globulin 3.5 g/dL (2.3-3.5); Potassium 4.2 mEq/L (3.5-5.1); Protein, Total 6.5 g/dL (6.4-8.2)
[2024-09-03] MEDS ORDERED: NA CHLORIDE 0.9% 250 ML ONE (01:04)
[2024-09-03] MEDS ORDERED: PANTOPRAZOLE 40 MG INJ ONE (01:04)
--- NOTE | 2024-09-03 01:26 | EDPHYS ---
Physician Documentation [facility] Name: Baron Yanes Age: 38 yrs Sex: Male : 1985 Arrival Date: 09/02/2024 Time: 22:39 Bed 7 Private MD: ED Physician Darwin Anthony HPI: 09/02 22:46 This 38 yrs old Black Male presents to ER via Unassigned with complaints of sp4 Nausea/Vomiting. 22:47 Patient presents with 2 days of reported black stools also today developed abdominal sp4 pain and vomiting and syncopal episode at home. History of hypertension, diabetes mellitus type 2, takes amlodipine bisoprolol and a eplerenone. 09/03 02:16 On repeat questioning patient states he takes low-dose aspirin. sp4 Historical: - Allergies: 09/02 22:53 No Known Allergies; dd2 - PMHx: 22:53 Hypertension; Diabetes mellitus; Myocardial infarction; dd2 - Immunization history:: Adult Immunizations up to date. - Infectious Disease History:: Denies. - Social history:: Smoking status: Patient reports the use of cigarette tobacco products, smokes one-half pack cigarettes per day. - Family history:: not pertinent. ROS: 09/03 02:16 Constitutional: Negative for fever, chills, and weight loss, positive for black stools, sp4 positive for syncope, positive for nausea vomiting, positive for hematemesis All other systems are negative, Exam: 02:16 Constitutional: This is a well developed, well nourished patient who is awake, alert, sp4 and in no acute distress. Head/Face: Normocephalic, atraumatic. Eyes: Pupils equal round and reactive to light, extra-ocular motions intact. Lids and lashes normal. Conjunctiva and sclera are not injected. Cornea within normal limits. Periorbital areas with no swelling, redness, or edema. ENT: Nares patent. No nasal discharge, no septal abnormalities noted. Tympanic membranes are normal and external auditory canals are clear. Oropharynx with no redness, swelling, or masses, exudates, or evidence of obstruction, uvula midline. Mucous membranes moist. Neck: Trachea midline, no thyromegaly or masses palpated, and no cervical lymphadenopathy. Supple, full range of motion without nuchal rigidity, or vertebral point tenderness. Chest/axilla: Normal chest wall appearance and motion. Nontender with no deformity. No lesions are appreciated. Cardiovascular: Regular rate and rhythm with a normal S1 and S2. No gallops, murmurs, or rubs. Normal PMI, no JVD. No pulse deficits. Respiratory: Lungs have equal breath sounds bilaterally, clear to auscultation and percussion. No rales, rhonchi or wheezes noted. No increased work of breathing, no retractions or nasal flaring. Abdomen/GI: Soft, with normal bowel sounds. No distension or tympany. No guarding or rebound. No evidence of tenderness throughout. Back: No spinal tenderness. No costovertebral tenderness. Male : Normal genitalia with no discharge or lesions. Digital rectal exam reveals grossly melenic stool. No bright red blood, no maroon stool, no mass, no hemorrhoid, exam positive for melena Skin: Warm, dry with normal turgor. Normal color with no rashes, no lesions, and no evidence of cellulitis. MS/ Extremity: Pulses equal, no cyanosis. Neurovascular intact. Full, normal range of motion. Neuro: Awake and alert, GCS 15, oriented to person, place, time, and situation. Cranial nerves II-XII grossly intact. Motor strength 5/5 in all extremities. Sensory grossly intact. Psych: Awake, alert, with orientation to person, place and time. Behavior, mood, and affect are within normal limits 02:16 ECG was reviewed by the Attending Physician. EKG 2257 sinus tachycardia rate 117 otherwise normal Vital Signs: 09/02 22:48 BP 134 / 89; Pulse 113; Resp 17; Temp 98.4; Pulse Ox 98% on R/A; Weight 145.5 kg; dd2 Height 5 ft. 11 in. ; Pain 6/10; 23:34 BP 100 / 65; Pulse 86; Resp 16; Pulse Ox 100% on 2 lpm NC; dd2 09/03 00:26 BP 117 / 70; Pulse 85; Resp 16; Pulse Ox 100% on 2 lpm NC; dd2 02:17 BP 128 / 68; Pulse 91; Resp 16; Temp 98.4; Pulse Ox 96% on R/A; dd2 09/02 22:48 Body Mass Index 44.74 (145.50 kg, 180.34 cm) dd2 09/02 22:48 Pain Scale: Adult dd2 Blaze Coma Score: 09/02 22:57 Eye Response: spontaneous(4). Motor Response: obeys commands(6). Verbal Response: dd2 oriented(5). Total: 15. 09/03 02:16 Eye Response: spontaneous(4). Motor Response: obeys commands(6). Verbal Response: sp4 oriented(5). Total: 15. MDM: 01:23 ED course: EXAM: CTAbdomen and Pelvis Without Intravenous Contrast CLINICAL HISTORY: sp4 The patient is 38 years old and is Male; ABD PAIN TECHNIQUE: Axial computed tomography images of the abdomen and pelvis without intravenous contrast. Sagittal and coronal reformatted images were created and reviewed. This CT exam was performed using one or more of the following dose reduction techniques: automated exposure control, adjustment of the mA and/or kV according to patient size, and/or use of iterative reconstruction technique. COMPARISON: No relevant prior studies available. FINDINGS: LUNG BASES: Unremarkable. No mass. No consolidation. ABDOMEN: LIVER: The liver is enlarged and homogeneous. The liver is fatty. GALLBLADDER AND BILE DUCTS: No calcified stones. No ductal dilation. PANCREAS: Unremarkable. No ductal dilation. SPLEEN: Unremarkable. ADRENALS: Unremarkable. No mass. KIDNEYS AND URETERS: No obstructing stones. No hydronephrosis. No perinephric fluid. STOMACH AND BOWEL: The stomach is distended with fluid and food contents. The small bowel is normal in caliber. Stool is present throughout the colon. There is no mucosal thickening or evidence of obstruction. PELVIS: APPENDIX: The appendix is normal in caliber without surrounding inflammation. BLADDER: The bladder is well distended. No stones. REPRODUCTIVE: Unremarkable as visualized. ABDOMEN and PELVIS: INTRAPERITONEAL SPACE: Unremarkable. No free air. No significant fluid collection. BONES/JOINTS: No acute fracture. SOFT TISSUES: A tiny fat-containing umbilical hernia is present. VASCULATURE: Unremarkable. No abdominal aortic aneurysm. LYMPH NODES: Unremarkable. No enlarged lymph nodes. IMPRESSION: No acute findings on this noncontrasted CT of the abdomen and pelvis to explain the patient's symptoms. . 01:25 Medical Screening Exam initiated sp4 02:18 Differential diagnosis: Nonspecific abd pain, gastritis, diverticulitis, viral sp4 gastroenteritis, gastroenteritis. Data reviewed: vital signs, nurses notes, old medical records, lab test result(s), EKG, radiologic studies, CT scan. Consideration of Admission/Observation Escalation of care including admission/observation considered. Management of patient was discussed with the following: Taco Maker: Trust Evaluation Supervisor at [facility]. ED course: At this time patient had no further episodes of hematemesis. Stable for transfer for GI consult and assessment.. 09/02 22:46 Order name: CBC with Diff; Complete Time: 00:38 sp4 09/02 22:46 Order name: CMP; Complete Time: 00:38 sp4 09/02 22:46 Order name: Lipase; Complete Time: 00:38 sp4 09/02 22:47 Order name: Type And Screen; Complete Time: 00:38 sp4 09/02 22:47 Order name: PT-INR; Complete Time: 00:38 sp4 09/02 22:46 Order name: CT Abd/Pelvis - Without Contrast sp4 09/02 22:46 Order name: IV Saline Lock; Complete Time: 23:02 sp4 09/02 22:47 Order name: Labs collected and sent; Complete Time: 23: sp4 09/03 00:50 Order name: NPO; Complete Time: 01:25 sp4 EC/23 22:57 Rate is 117 beats/min. Rhythm is regular, Sinus tachycardia. QRS [place] is Normal. [place] sp4 interval is normal. QRS interval is normal. QT interval is normal. No Q waves. T waves are Normal. No ST changes noted. Clinical impression: No evidence of ischemia. Interpreted by me. Reviewed by me. Administered Medications: 23:26 Drug: Famotidine IVP 20 mg IVP once; dilute with 10 mL 0.9% NaCl; give over 2 minutes dd2 Route: IVP; Site: right antecubital; 23:41 Follow up: Response: No adverse reaction dd2 23:27 Drug: TORadol - Ketorolac IVP 30 mg IVP once Route: IVP; Site: right antecubital; dd2 23:42 Follow up: Response: No adverse reaction dd2 23:27 Drug: Ondansetron IVP 8 mg IVP once; over 2 minutes Route: IVP; Site: right antecubital;dd2 23:42 Follow up: Response: No adverse reaction dd2 23: Drug: NS 0.9% IV 1000 ml IV at 1 bolus Per protocol; to be given as a bolus over 60 dd2 minutes Route: IV; Rate: 1 bolus; Site: right antecubital; 09/03 00:30 Follow up: IV Status: Completed infusion; IV Intake: 1000ml dd2 09/02 23:28 Drug: morphine IVP or IV 4 mg IVP once over 4 mins Route: IVP; Infused Over: 4 mins; dd2 Site: right antecubital; 23:43 Follow up: Response: No adverse reaction dd2 09/03 01:25 Drug: Pantoprazole IVP 80 mg IVP once Route: IVP; Site: right antecubital; dd2 01:40 Follow up: Response: No adverse reaction dd2 01:25 Drug: Pantoprazole IV 8 mg/hr IV at 25 ml/hr continuous; (Standard dilution is 80 mg in dd2 250 mL NS) Route: IV; Rate: 25 ml/hr; Site: right antecubital; 02:21 Follow up: IV Status: Infusion continued upon transfer dd2 02:38 Drug: morphine IVP or IV 4 mg IVP once over 4 mins Route: IVP; Infused Over: 4 mins; dd2 Site: right antecubital; 02:53 Follow up: Response: No adverse reaction dd2 02:38 Drug: metoCLOPramide IVP 10 mg IVP once; over 1 to 2 minutes Route: IVP; Site: right dd2 antecubital; 02:53 Follow up: Response: No adverse reaction dd2 Disposition Summary: 09/03/24 01:25 Transfer Ordered Notes: Transfer Location: [facility]-System sp4 Reason: Higher level of care sp4 Condition: Stable sp4 Problem: new sp4 Symptoms: have improved sp4 Accepting Physician: [facility] Attending (09/03/24 02:54) dd2 Diagnosis - GI Bleed/ Gastrointestinal hemorrhage, unspecified sp4 - Acute Upper GI bleed sp4 Forms: - Medication Reconciliation Form sp4 - SBAR form sp4 Signatures: Dispatcher [employer] Darwin Méndez MD MD sp4 DONATO PERERA RN RN dd2 Corrections: (The following items were deleted from the chart) 09/02 22:47 22:47 TYPE AND SCREEN+BB.LAB.BRZ ordered. EDMS EDMS 22:47 22:47 PROTIME (+INR)+COAG.LAB.DOMINIQUEZ fausto. EDMS EDMS 09/03 02:54 01:[address] [facility] Attending sp4 dd2
--- NOTE | 2024-09-03 01:26 | ER ---
Nurse's Notes [facility] Name: Baron Yanes Age: 38 yrs Sex: Male : 1985 Arrival Date: 09/02/2024 Time: 22:39 Bed 7 Private MD: Diagnosis: GI Bleed/ Gastrointestinal hemorrhage, unspecified;Acute Upper GI bleed Presentation: 09/02 22:48 Chief complaint: EMS states: TONED OUT FOR VOMITING BLOOD AND SYNCOPE. EMS REPORTS THAT dd2 PT HAD EATEN A LARGE AMOUNT OF PRUNES TO INDUCE A BOWEL MOVEMENT AND BEGAN VOMITING AND PASSED OUT, CALLED 911 REPORTING BLOOD. UPON ARRIVAL, EMS REPORTED VOMIT CONTAINING PRUNES AND JUICE. EMS REPORTS ONE EPISODE OF SYNCOPE ON SCENE. PT REPORTS 2 DAYS OF EPIGASTRIC PAIN. Coronavirus screen: At this time, the client does not indicate any symptoms associated with coronavirus-19. Ebola Screen: No symptoms or risks identified at this time. Initial Sepsis Screen: Does the patient meet any 2 criteria? No. Patient's initial sepsis screen is negative. Does the patient have a suspected source of infection? No. Patient's initial sepsis screen is negative. Risk Assessment: Do you want to hurt yourself or someone else? Patient reports no desire to harm self or others. Onset of symptoms is unknown. 22:48 Method Of Arrival: EMS: [facility] dd2 22:48 Acuity: TANYA 3 dd2 Triage Assessment: 22:53 General: Appears in no apparent distress. uncomfortable, Behavior is calm, cooperative, dd2 appropriate for age. Pain: Complains of pain in epigastric area Pain does not radiate. Pain currently is 7 out of 10 on a pain scale. EENT: No deficits noted. No signs and/or symptoms were reported regarding the EENT system. Neuro: Herrmann Agitation-Sedation Scale (RASS): 0 - Alert and Calm Level of Consciousness is awake, alert, obeys commands, Oriented to person, place, time, situation, Appropriate for age Reports a syncopal episode. Cardiovascular: Heart tones S1 S2 present Patient's skin is warm and dry. Respiratory: Airway is patent Respiratory effort is even, unlabored, Respiratory pattern is regular, symmetrical. GI: Abdomen is non-distended, obese, Bowel sounds present X 4 quads. Abd is soft and non tender Reports constipation, cramping, epigastric pain, nausea, vomiting. : No deficits noted. No signs and/or symptoms were reported regarding the genitourinary system. Derm: No deficits noted. No signs and/or symptoms reported regarding the dermatologic system. Musculoskeletal: No deficits noted. No signs and/or symptoms reported regarding the musculoskeletal system. Circulation, motion, and sensation intact. Range of motion: intact in all extremities. Historical: - Allergies: 22:53 No Known Allergies; dd2 - PMHx: 22:53 Hypertension; Diabetes mellitus; Myocardial infarction; dd2 - Immunization history:: Adult Immunizations up to date. - Infectious Disease History:: Denies. - Social history:: Smoking status: Patient reports the use of cigarette tobacco products, smokes one-half pack cigarettes per day. - Family history:: not pertinent. Screenin:57 [facility] ED Fall Risk Assessment (Adult) History of falling in the last 3 months, dd2 including since admission Yes- single mechanical fall (1 pt) Confusion or Disorientation No (0 pts) Intoxicated or Sedated No (0 pts) Impaired Gait No (0 pts) Mobility Assist Device Used No (0 pt) Altered Elimination No (0 pt) Score/Fall Risk Level 0 - 2 = Low Risk Oriented to surroundings, Maintained a safe environment, Educated pt \T\ family on fall prevention, incl call for assistance when getting out of bed, Assessed \T\ reinforced patient's understanding of fall precautions, Hourly rounding (assess needs \T\ fall precautionary measures) done. Abuse screen: Denies threats or abuse. Denies injuries from another. Nutritional screening: No deficits noted. Tuberculosis screening: No symptoms or risk factors identified. Assessment: 22:57 Reassessment: SEE TRIAGE ASSESSMENT FOR FULL ASSESSMENT. dd2 09/03 01:15 Reassessment: Patient and/or family updated on plan of care and expected duration. Pain dd2 level reassessed. Patient is alert, oriented x 3, equal unlabored respirations, skin warm/dry/pink. Patient states feeling better. 02:18 Reassessment: REPORT CALLED TO [facility] 11TH FLOOR. dd2 Vital Signs: 09/02 22:48 BP 134 / 89; Pulse 113; Resp 17; Temp 98.4; Pulse Ox 98% on R/A; Weight 145.5 kg; dd2 Height 5 ft. 11 in. ; Pain 6/10; 23:34 BP 100 / 65; Pulse 86; Resp 16; Pulse Ox 100% on 2 lpm NC; dd2 09/03 00:26 BP 117 / 70; Pulse 85; Resp 16; Pulse Ox 100% on 2 lpm NC; dd2 02:17 BP 128 / 68; Pulse 91; Resp 16; Temp 98.4; Pulse Ox 96% on R/A; dd2 09/02 22:48 Body Mass Index 44.74 (145.50 kg, 180.34 cm) dd2 09/02 22:48 Pain Scale: Adult dd2 [place] Coma Score: 09/02 22:57 Eye Response: spontaneous(4). Motor Response: obeys commands(6). Verbal Response: dd2 oriented(5). Total: 15. 09/03 02:16 Eye Response: spontaneous(4). Motor Response: obeys commands(6). Verbal Response: sp4 oriented(5). Total: 15. ED Course: 09/02 22:45 Patient arrived in ED. [id number] 22:45 Darwin Anthony MD is Attending Physician. sp4 22:47 DONATO PERERA, CLAY is Primary Nurse. dd2 22:52 Triage completed. dd2 22:53 Arm band placed on right wrist. dd2 22:57 Patient has correct armband on for positive identification. Client placed on continuous dd2 cardiac and pulse oximetry monitoring. NIBP monitoring applied. chicken buyer on. Door closed. Noise minimized. Warm blanket given. Pillow given. Verbal reassurance given. 22:57 No provider procedures requiring assistance completed. Patient maintains SpO2 dd2 saturation greater than 95% on room air. 23:01 PT-INR Sent. ha1 23:01 Type And Screen Sent. ha1 23:02 CBC with Diff Sent. ha1 23:02 CMP Sent. ha1 23:02 Lipase Sent. ha1 23:02 EKG done, by ED staff, reviewed by Darwin Anthony MD. mm11 23:02 Inserted saline lock: 20 gauge in right antecubital area, using aseptic technique. ha1 Blood collected. Flushed with 10 mL NS. 23:07 CT Abd/Pelvis - Without Contrast In Process Unspecified. EDMS 09/03 01:17 initiated transfer with Kate \T\ [facility]. kmf 02:01 pt was accepted by Pearl Syed \T\[id number]. Admin approval given Quinton Stringer \T\[id number]. Pt was km f accepted to [facility] - 11th floor 11C -1150. Number for nurse to nurse report [phone]. [facility] to transfer once nurse to nurse is complete. 02:53 Patient transferred, IV remains in place. dd2 02:54 Provided Education on: TRANSFER INSTRUCTIONS. dd2 Administered Medications: 09/02 23:26 Drug: Famotidine IVP 20 mg IVP once; dilute with 10 mL 0.9% NaCl; give over 2 minutes dd2 Route: IVP; Site: right antecubital; 23:41 Follow up: Response: No adverse reaction dd2 23:27 Drug: TORadol - Ketorolac IVP 30 mg IVP once Route: IVP; Site: right antecubital; dd2 23:42 Follow up: Response: No adverse reaction dd2 23:27 Drug: Ondansetron IVP 8 mg IVP once; over 2 minutes Route: IVP; Site: right antecubital;dd2 23:42 Follow up: Response: No adverse reaction dd2 23:27 Drug: NS 0.9% IV 1000 ml IV at 1 bolus Per protocol; to be given as a bolus over 60 dd2 minutes Route: IV; Rate: 1 bolus; Site: right antecubital; 09/03 00:30 Follow up: IV Status: Completed infusion; IV Intake: 1000ml dd2 09/02 23:28 Drug: morphine IVP or IV 4 mg IVP once over 4 mins Route: IVP; Infused Over: 4 mins; dd2 Site: right antecubital; 23:43 Follow up: Response: No adverse reaction dd2 09/03 01:25 Drug: Pantoprazole IVP 80 mg IVP once Route: IVP; Site: right antecubital; dd2 01:40 Follow up: Response: No adverse reaction dd2 01:25 Drug: Pantoprazole IV 8 mg/hr IV at 25 ml/hr continuous; (Standard dilution is 80 mg in dd2 250 mL NS) Route: IV; Rate: 25 ml/hr; Site: right antecubital; 02:21 Follow up: IV Status: Infusion continued upon transfer dd2 02:38 Drug: morphine IVP or IV 4 mg IVP once over 4 mins Route: IVP; Infused Over: 4 mins; dd2 Site: right antecubital; 02:53 Follow up: Response: No adverse reaction dd2 02:38 Drug: metoCLOPramide IVP 10 mg IVP once; over 1 to 2 minutes Route: IVP; Site: right dd2 antecubital; 02:53 Follow up: Response: No adverse reaction dd2 Medication: 09/02 22:57 VIS not applicable for this client. dd2 Intake: 09/03 00:30 IV: 1000ml; Total: 1000ml. dd2 Outcome: 01:25 ER care complete, transfer ordered by MD. [email or web address] 02:53 Transferred by ground EMS to [facility], Transfer form dd2 completed. 02:53 Condition: stable 02:53 Instructed on the need for transfer, Demonstrated understanding of instructions, 02:54 Patient left the ED. dd2 Signatures: Dispatcher [employer] EDMS Shannon Cueto [email or web address] Clotilde Hickey RN RN Darwin Jernigan MD MD sp4 Beti Rocha DIANA, RN RN dd2 gypsy masterson [id number]
[2024-09-03] MEDS ORDERED: METOCLOPRAMIDE 10 MG/2mL INJ ONE (02:33)
[2024-09-03] MEDS ORDERED: MORPHINE 4 MG/ML SYR ONE (02:33)
[2024-09-03 03:04] VITALS: TEMP 98.4
[2024-09-03 03:21] VITALS: BP 128/68; O2SAT 96
--- NOTE | 2024-09-04 13:16 | RAD REPORT ---
EXAMINATION: CT Abdomen Pelvis Wo Contrast CLINICAL INDICATION: Male, 38 years old. ABD PAIN TECHNIQUE: CT abdomen and pelvis was performed, without IV contrast, as per department protocol. Axia l, sagittal and coronal reconstructions were obtained. One or more of the following dose reduction techniques were used: Automated exposure control, adjustment of the mA and kV according to the patien t size, and iterative reconstruction. Unless otherwise specified, incidental findings do not require dedicated imaging follow-up. COMPARISON: No prior exam. FINDINGS: The lack of intravenous contrast limits the sensitivity of this exam for evaluation of solid visceral organs, vascular structures, and retroperitoneum. LOWER CHEST: The visualized lung bases are clear. LIVER: Normal in size and contour. No focal lesion. BILIARY SYSTEM: No suspicious abnormalities. SPLEEN: Normal size. No focal lesion. PANCREAS: No mass, ductal dilation, or rick-pancreatic fluid. ADRENALS: Normal; no mass. KIDNEYS AND URETERS: Normal size and contour. No hydronephrosis. URINARY BLADDER: Normal contour. GASTROINTESTINAL TRACT: No evidence of bowel obstruction, significant free fluid, free air or abscess . APPENDIX: Normal appendix. LYMPH NODES: No lymphadenopathy. MUSCULOSKELETAL: No acute or suspicious osseous abnormality. ADDITIONAL FINDINGS: None. IMPRESSION: No acute or concerning abnormalities in the abdomen or pelvis, with evaluation limited by lack of IV contrast.
== END 2024-09-03 02:54 | disposition short-term general hospital (02) ==
LOC: ER 22:39
DX: K92.0 Hematemesis (principal); F17.210 Nicotine dependence, cigarettes, uncomplicated
CPT/HCPCS: 96365; 96361; 93005; 85025; 36415; 86900; 86850; 85610; 86901; 83690; 80053; 74176; 96375; 99285; J2765; J2470; J2405; J7050; J7030